=== PATIENT | male | born 1990 | race Caucasian/White ===

== ENCOUNTER 2016-11-10 08:41 | Inpatient (IN) | payer OTHER ==
[~2016-11-10] VITALS: Ht 175.3 cm; Wt 90.1 kg
[~2016-11-10 08:41] MED LIST: BACLOFEN10 MG PO; COLACE100 MG PO; FLO4 PO; LAC PO; LEVAQUIN750 MG PO; NEURONTIN600 MG PO; NOR10T PO
[2016-11-10 09:37] LABS: BASOPHIL % 0.3 % (0-2); PLATELET COUNT 292 x10^3mcL (130-400); RED CELL DISTRIBUTION WIDTH 13.6 % (11.5-14.5)
[2016-11-10 10:08] LABS: CALCIUM 8.9 mg/dL (8.5-10.1); CARBON DIOXIDE 23.1 mmol/L (21-32); CHLORIDE SERUM 108 mmol/L (98-107); CREATININE SERUM 0.9 mg/dL (0.7-1.3); GFR1 > 60 mL/min; GLUCOSE SERUM 103 mg/dL (74-106); POTASSIUM SERUM 3.8 mmol/L (3.5-5.1); SODIUM SERUM 139 mmol/L (136-145)
[2016-11-10 10:12] LABS: ALBUMIN 3.9 g/dL (3.4-5.0); ALKALINE PHOSPHATASE 94 U/L (46-116); ALT/SGPT 34 U/L (16-63); AST/SGOT 19 U/L (15-37); BILIRUBIN TOTAL 0.3 mg/dL (0.20-1.00); CHOLESTEROL 180 mg/dL (<200); CHOLESTEROL/HDL RATIO 4.9; HDL CHOLESTEROL 37 mg/dL (40-60); LIPASE 99 IU/L (73-393); TOTAL PROTEIN, SERUM 7.8 g/dL (6.4-8.2); TRIGLYCERIDES 60 mg/dL (<150)
[2016-11-10 10:13] LABS: microscopic required? NO
[2016-11-10 10:18] LABS: T3 TOTAL 0.87 ng/mL
[2016-11-10 10:24] LABS: UA SPECIFIC GRAVITY <=1.005 (1.005-1.035); urine erythrocyte NEGATIVE (NEGATIVE)
[2016-11-10 13:03] LABS: FREE T4 1.12 ng/dL (0.76-1.46); FREE THYROXINE INDEX 2.5 ug/dL (1.4-4.5)
[2016-11-10] MEDS ORDERED: GABAPENTIN600 M1 PO (13:44)
[2016-11-10] MEDS ORDERED: AMITRIPTYLINE H50 MG PO (13:45)
[2016-11-10] MEDS ORDERED: BACLOFEN20 MG PO (13:45)
[2016-11-10 14:00] LABS: MAGNESIUM 2.4 mg/dL (1.8-2.4); PHOSPHOROUS 3.5 mg/dL (2.5-4.9)
[2016-11-10 14:20] VITALS: BP 132/92
[2016-11-10 14:21] VITALS: BP 132/92
[2016-11-10 15:13] LABS: AMPHETAMINE QUAL UR NONE DETECTED (NEG <=1000)
[2016-11-10 17:13] VITALS: BP 103/65
[2016-11-10 22:01] VITALS: BP 109/67; BP 139/81
== END 2016-11-10 22:31 | disposition left against medical advice (07) | DRG 342 ==
LOC: ED 08:41 → DU 12:41
PROVIDERS: Family Medicine; Specialist; ADMIT Family Medicine
DX: S92.322A Displaced fracture of second metatarsal bone, left foot, initial encounter for closed fracture (principal); N17.0 Acute kidney failure with tubular necrosis; G92 Toxic encephalopathy; G90.9 Disorder of the autonomic nervous system, unspecified; S09.90XA Unspecified injury of head, initial encounter; Z87.891 Personal history of nicotine dependence; W19.XXXA Unspecified fall, initial encounter; Y93.89 Activity, other specified; Y92.89 Other specified places as the place of occurrence of the external cause; Y99.8 Other external cause status; G89.4 Chronic pain syndrome; S92.332A Displaced fracture of third metatarsal bone, left foot, initial encounter for closed fracture; S92.342A Displaced fracture of fourth metatarsal bone, left foot, initial encounter for closed fracture
CPT/HCPCS: 83880; 84439; J1170; J1885; J2270; J2405; J7030; Q0092